=== PATIENT | male | born 1975 | race Caucasian/White ===

== ENCOUNTER 2019-04-30 09:53 | Inpatient (IN) | payer OTHER ==
[2019-04-30 10:15] VITALS: BMI 29.1
--- NOTE | 2019-04-30 10:30 | HP ---
COWS - Scale Resting Pulse: 1= [place] 81-100 Sweatin=Flushed/Facial Moisture Restless Observation: 1= Difficult to Sit Still Pupil Size: 1= Pupils >than Normal Bone or Joint Aches: 2= Severe Diffuse Aches Runny Nose/ Eye Tearin= Runny Nose/Eyes GI Upset > 30mins: 2= Nausea/Diarrhea Tremor Observation: 2= Slight Tremor Visible Yawning Observation: 1= 1-2x During Session Anxiety or Irritability: 1=Feels Anxious/Irritable Goose Flesh Skin: 3=Piloerection COWS Score: 18 CIWA Score - Admission Criteria OASAS Guidelines: Admission for Medically Managed Detox: Requires at least one of the followin. CIWA greater than 12 2. Seizures within the past 24 hours 3. Delirium tremens within the past 24 hours 4. Hallucinations within the past 24 hours 5. Acute intervention needed for co occurring medical disorder 6. Acute intervention needed for co occurring psychiatric disorder 7. Severe withdrawal that cannot be handled at a lower level of care (continued vomiting, continued diarrhea, abnormal vital signs) requiring intravenous medication and/or fluids 8. Admitting History and Physical - Admission Chief Complaint: " I want to stop heroin and cocaine." History of Present Illness: 43 year old male with opioid dependence with withdrawals and cocaine use disorder. He is using 3-4 bundles heroin per day. He denies overdose in the past. He last used yesterday. He is using 5 bundles of cocaine per day. He last used yesterday. He smokes 3-4 ciggs per day, since 15 years old. Never attempted smoking cessation. PMH: HTN, Asthma Psurg: Right shoulder rotator cuff tear - Smoking History Smoking history: Current every day smoker Have you smoked in the past 12 months: Yes Aproximately how many cigarettes per day: 10 - Alcohol/Substance Use Hx Alcohol Use: Yes Admission ROS [facility] - HPI Allergies/Adverse Reactions: Allergies Allergy/AdvReac Type Severity Reaction Status Date / Time No Known Allergies Allergy Verified 09/17/15 16:38 Exam Limitations: No Limitations - Ebola screening Have you traveled outside of the country in the last 21 days: No Have you had contact with anyone from an Ebola affected area: No Have you been sick,other than usual withdrawal symptoms: No Do you have a fever: No - Review of Systems Constitutional: Chills, Diaphoresis, Night Sweats EENT: reports: No Symptoms Reported Respiratory: reports: No Symptoms reported Cardiac: reports: No Symptoms Reported GI: reports: No Symptoms Reported : reports: No Symptoms Reported Musculoskeletal: reports: No Symptoms Reported Integumentary: reports: No Symptoms Reported Neuro: reports: No Symptoms reported Endocrine: reports: No Symptoms Reported Hematology: reports: No Symptoms Reported Psychiatric: reports: Judgement Intact, Mood/Affect Appropiate, Orientated x3 Other Systems: Reviewed and Negative Patient History - Patient Medical History Hx Anemia: No Hx Asthma: Yes Hx Chronic Obstructive Pulmonary Disease (COPD): No Hx Cancer: No Hx Cardiac Disorders: No Hx Congestive Heart Failure: No Hx Hypertension: Yes Hx Hypercholesterolemia: No Hx Pacemaker: No HX Cerebrovascular Accident: No Hx Seizures: No Hx Dementia: No Hx Diabetes: No Hx Gastrointestinal Disorders: No Hx Liver Disease: No Hx Genitourinary Disorders: No Hx Sexually Transmitted Disorders: No Hx Renal Disease (ESRD): No Hx Thyroid Disease: No Hx Human Immunodeficiency Virus (HIV): No Hx Hepatitis C: No Hx Depression: No Hx Suicide Attempt: Yes (2004) Hx Bipolar Disorder: Yes Hx Schizophrenia: Yes - Patient Surgical History Past Surgical History: Yes Hx Neurologic Surgery: No Hx Cataract Extraction: No Hx Cardiac Surgery: No Hx Lung Surgery: No Hx Breast Surgery: No Hx Breast Biopsy: No Hx Abdominal Surgery: No Hx Appendectomy: No Hx Cholecystectomy: No Hx Genitourinary Surgery: No Hx Section: No Hx Orthopedic Surgery: Yes (RT. ROTATOR CUFF) Anesthesia Reaction: No - PPD History Previous Implant?: Yes Documented Results: Negative w/o proof Implanted On Prior [facility] Admission?: Yes Date: 09/19/15 PPD to be Administered?: Yes - Smoking Cessation Smoking history: Current every day smoker Have you smoked in the past 12 months: Yes Aproximately how many cigarettes per day: 10 Hx Chewing Tobacco Use: No Initiated information on smoking cessation: Yes 'Breaking Loose' booklet given: 05/01/19 - Substances abused Heroin Substance route: Injection Frequency: Daily Amount used: $100 Age of first use: 18 Date of last use: 04/29/19 Cocaine Substance route: Smoking Frequency: Daily Amount used: $200 Age of first use: 18 Date of last use: 04/29/19 Admission Physical Exam [facility] - Vital Signs Vital Signs: Vital Signs - 24 hr 04/30/19 10:03 Temperature 97.7 F Pulse Rate 58 L Respiratory 18 Rate Blood Pressure 156/89 - Physical General Appearance: Yes: Mild Distress, Tremorous, Irritable, Sweating, Anxious HEENTM: Yes: EOMI, Hearing grossly Normal, Normal ENT Inspection, Normocephalic , Normal Voice, MARIANO, Pharynx Normal, Tm's normal, Other (right subconjunctival hemmorhage and fracture of nose) Respiratory: Yes: Chest Non-Tender, Lungs Clear, Normal Breath Sounds, No Respiratory Distress, No Accessory Muscle Use Neck: Yes: No masses,lesions,Nodules, Supple, Trachea in good position Breast: Yes: Within Normal Limits Cardiology: Yes: Regular Rhythm, Regular Rate, S1, S2 Abdominal: Yes: Non Tender, Flat, Soft, Increased Bowel Sounds Genitourinary: Yes: Within Normal Limits Back: Yes: Normal Inspection Musculoskeletal: Yes: full range of Motion, Gait Steady, Pelvis Stable Extremities: Yes: Normal Capillary Refill, Normal Inspection, Normal Range of Motion, Non-Tender Neurological: Yes: 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 intact, Fully Oriented, Alert, Motor Strength 5/5, Normal Mood/Affect, Normal Response Integumentary: Yes: Normal Color, Warm Lymphatic: Yes: Within Normal Limits - Diagnostic (1) Opioid dependence with withdrawal Status: Acute (2) Asthma Status: Chronic Qualifiers: Asthma severity: mild Asthma persistence: intermittent Asthma complication type: with status asthmaticus (3) Bipolar disorder Status: Acute (4) Cocaine dependence, uncomplicated Status: Acute (5) GERD (gastroesophageal reflux disease) Status: Chronic Qualifiers: Esophagitis presence: without esophagitis Qualified Code(s): K21.9 - Gastro -esophageal reflux disease without esophagitis (6) HTN (hypertension) Status: Chronic Qualifiers: Hypertension type: essential hypertension Qualified Code(s): I10 - Essential (primary) hypertension (7) Nicotine dependence Status: Acute Qualifiers: Nicotine product type: cigarettes Substance use status: in withdrawal Qualified Code(s): F17.213 - Nicotine dependence, cigarettes, with withdrawal Cleared for Admission [facility] - Detox or Rehab [facility] Level of Care: Medically Managed Detox Regimen/Protocol: Methadone Claeared for Rehab Admission: No Screened but not Admitted - Documentation of Visit Screened but not Admitted: No Inpatient Rehab Admission - Rehab Decision to Admit Inpatient rehab admission?: No
[2019-04-30] MEDS ORDERED: MAGNESIUM CITRATE 300 ML BOTTLE PO PRN (10:36)
[2019-04-30] MEDS ORDERED: cloNIDine HCL 0.1 MG TABLET PO PRN (10:36)
[2019-04-30] MEDS ORDERED: hydrOXYzine PAMOATE 25 MG CAPSULE (FP) PO PRN (10:36)
[2019-04-30] MEDS ORDERED: BISMUTH SUBSALICYLATE 262 MG/15 ML BTL PO PRN (10:36)
[2019-04-30] MEDS ORDERED: MELATONIN 5 MG TABLETS PO PRN (10:36)
[2019-04-30] MEDS ORDERED: IBUPROFEN 400 MG TABLET (FP) PO PRN (10:36)
[2019-04-30] MEDS ORDERED: ACETAMINOPHEN 325 MG TABLET (FP) PO PRN ×2 (10:36)
[2019-04-30] MEDS ORDERED: MENTHOL/PHENOL 1 EACH UD MM PRN (10:36)
[2019-04-30] MEDS ORDERED: MAGNESIUM HYDROX 2400MG/30ML ORAL SUSPENSION 30 ML CUP PO PRN (10:36)
[2019-04-30] MEDS ORDERED: MAG HYDROX/AL HYDROX/SIMETH 30 ML UNIT-DOSE CUP PO PRN (10:36)
[2019-04-30] MEDS ORDERED: METHOCARBAMOL 500 MG TABLET PO PRN (10:36)
[2019-04-30] MEDS ORDERED: METHADONE HCL 10 MG TABLET (FOR DETOX USE ONLY) PO ONE (11:40)
[2019-04-30] MEDS: PANTOPRAZOLE 20 MG TABLET (FP) PO SCH (11:58)
--- NOTE | 2019-04-30 12:48 | CONSULT ---
[facility] Psychiatric Consult - Data Date of interview: 04/30/19 Admission source: [facility] Identifying data: Patient is approached for psychiatric interview. Found lying in bed, awake. Mr Al refuses to talk to conventional underwriter. " I am tired. I need to rest. I am not talking." Nursing staff is made aware.
[2019-04-30 14:30] LABS: HEMATOCRIT 44.9 % (35.4-49); HEMOGLOBIN 14.7 GM/dL (11.7-16.9); MCH 28.7 pg (25.7-33.7); MCHC 32.7 g/dl (32.0-35.9); MEAN CELL VOLUME 87.9 fl (80-96); MEAN PLT VOLUME 7.5 fl (7.5-11.1); PLATELET COUNT 348 K/MM3 (134-434); RBC 5.11 M/mm3 (4.00-5.60); RDW 14.4 % (11.9-15.9); WHITE BLOOD COUNT 8.3 K/mm3 (4.0-10.0)
[2019-04-30 14:44] LABS: ALBUMIN 3.5 g/dl (3.4-5.0); BILIRUBIN,TOTAL 0.6 mg/dL (0.2-1); BLOOD UREA NITROGEN 12.3 mg/dL (7-18); CALCIUM 9.1 mg/dL (8.5-10.1); CREATININE 0.7 mg/dL (0.55-1.3); POTASSIUM 3.8 mmol/L (3.5-5.1); TOT PROT 7.6 g/dl (6.4-8.2)
[2019-04-30] MEDS ORDERED: THIAMINE HCL 100 MG TABLET (FP) PO SCH (22:00)
[2019-05-01] MEDS ORDERED: METHADONE HCL 10 MG TABLET (FOR DETOX USE ONLY) ONE (08:15)
[2019-05-01] MEDS ORDERED: METHADONE HCL 5 MG TABLET (FOR DETOX USE ONLY) ONE (08:15)
[2019-05-01] MEDS: PANTOPRAZOLE 20 MG TABLET (FP) PO SCH (09:06)
[2019-05-01] MEDS ORDERED: METHADONE (DETOX) 20 MG, METHADONE (DETOX) 5 MG PO ONE (10:00)
[2019-05-01] MEDS ORDERED: PRENATAL VITAMINS W/ FOLIC ACID TABLET (FP) PO SCH (10:00)
[2019-05-01] MEDS ORDERED: NICOTINE 14 MG/24 HOURS TOPICAL PATCH TD SCH (10:00)
--- NOTE | 2019-05-01 10:31 | PN ---
S COWS - Scale Resting Pulse: 0= [place] 80 or Below Sweatin=Flushed/Facial Moisture Runny Nose/ Eye Tearin= Runny Nose/Eyes Tremor Observation of Outstretched Hands: 2= Slight Tremor Visible Anxiety or Irritability: 2=Irritable/Anxious S Progress Note (SOAP) Subjective: 43 years old male admitted on 04/30/19 for opiate withdrawal sx management treating with methadone detox regimen patient is uncooperative during cows measurement patient refuses bp monitoring patient refuses to be seen by a psychiatrist although the patient states out loud that he has mental illness not taking any medication patient is irritable patient is aggressive at time toward staff patient contracted for safety in the detox unit to staff and to peers Objective: 05/01/19 11:09 Vital Signs Temperature 97.4 F L 05/01/19 09:08 Pulse Rate 60 05/01/19 09:08 Respiratory Rate 18 05/01/19 09:08 Blood Pressure 149/90 05/01/19 09:08 O2 Sat by Pulse Oximetry (%) Laboratory Last Values WBC 8.3 K/mm3 (4.0-10.0) 04/30/19 10:40 RBC 5.11 M/mm3 (4.00-5.60) 04/30/19 10:40 Hgb 14.7 GM/dL (11.7-16.9) 04/30/19 10:40 Hct 44.9 % (35.4-49) 04/30/19 10:40 MCV 87.9 fl (80-96) 04/30/19 10:40 MCH 28.7 pg (25.7-33.7) 04/30/19 10:40 MCHC 32.7 g/dl (32.0-35.9) 04/30/19 10:40 RDW 14.4 % (11.9-15.9) 04/30/19 10:40 Plt Count 348 K/MM3 (134-434) 04/30/19 10:40 MPV 7.5 fl (7.5-11.1) 04/30/19 10:40 Sodium 137 mmol/L (136-145) 04/30/19 10:40 Potassium 3.8 mmol/L (3.5-5.1) 04/30/19 10:40 Chloride 103 mmol/L (98-107) 04/30/19 10:40 Carbon Dioxide 26 mmol/L (21-32) 04/30/19 10:40 Anion Gap 8 MMOL/L (8-16) 04/30/19 10:40 BUN 12.3 mg/dL (7-18) 04/30/19 10:40 Creatinine 0.7 mg/dL (0.55-1.3) 04/30/19 10:40 Est GFR (CKD-EPI)AfAm 135.86 04/30/19 10:40 Est GFR (CKD-EPI)NonAf 117.22 04/30/19 10:40 Random Glucose 96 mg/dL (74-106) 04/30/19 10:40 Calcium 9.1 mg/dL (8.5-10.1) 04/30/19 10:40 Total Bilirubin 0.6 mg/dL (0.2-1) 04/30/19 10:40 AST 42 U/L (15-37) H 04/30/19 10:40 ALT 56 U/L (13-61) 04/30/19 10:40 Alkaline Phosphatase 76 U/L (45-117) 04/30/19 10:40 Total Protein 7.6 g/dl (6.4-8.2) 04/30/19 10:40 Albumin 3.5 g/dl (3.4-5.0) 04/30/19 10:40 RPR Titer Nonreactive (NONREACTIVE) 04/30/19 10:40 HIV 1&2 Antibody Screen Negative 04/30/19 10:52 HIV P24 Antigen Negative 04/30/19 10:52 lab noted bp elevation admlodipine 5 mg po daily Assessment: 05/01/19 11:10 opiate withdrawal Plan: methadone regimen
[2019-05-01] MEDS ORDERED: FLU VACCINE QUAD 60 MCG/0.5 ML (MDV 19-20) IM ONE (12:00)
[2019-05-01 13:04] VITALS: BP 146/94; PULSE 55; TEMP 98.1
--- NOTE | 2019-05-01 13:07 | PN ---
[facility] Progress Note Note: Psychiatry Attending's note (delayed) : Case re-endorsed, by nurse Yoselyn Vaughn, for psychiatric evaluation. Patient is, again, approached at bedside for psychiatric interview. Mr Al responds that he " does not need to talk to psychiatrists." He is found lying in bed, fully awake and resting. No evidence of distress. " I need my sleep. I don't have to see psychiatrists. I am fine. Just tired." Nursing staff is made aware of patient's decision to decline psychiatric interview.
--- NOTE | 2019-05-01 14:39 | DS ---
[facility] Detox Discharge Summary Admission Date: 04/30/19 Discharge Date: 05/01/19 - History Present History: Opioid Dependence Additional Comments: 43 years old male admitted on 04/30/19 for opiate withdrawal sx management treated with methadone detox regimen patient is alert awake ambulating steady gait speech clearly and coherently that people disturb his resting "keep waking me up" anger out burst aggressive toward staff threatening staff verbally violent toward staff rich in sexual content multidisciplinary approach that involuntary discharge is appropriated medical grade shoemaker informed and agreed involuntary discharge patient had no visible injury good eye contact - Physical Exam Results Vital Signs: Vital Signs Temperature 98.1 F 05/01/19 13:03 Pulse Rate 55 L 05/01/19 13:03 Respiratory Rate 18 05/01/19 13:03 Blood Pressure 146/94 05/01/19 13:03 O2 Sat by Pulse Oximetry (%) Pertinent Admission Physical Exam Findings: opiate withdrawal CBC, BMP 04/30/19 10:40 04/30/19 10:40 - Treatment Hospital Course: Detox Protocol Followed, Responded well, Discharged Condition Good Patient has Accepted a Rehab Referral to: community support approach - Medication Discharge Medications: Ambulatory Orders Naloxone HCl [Narcan] 4 mg NS ASDIR PRN #1 spray 05/01/19 - Diagnosis (1) Asthma Current Visit: Yes Status: Chronic Qualifiers: Asthma severity: mild Asthma persistence: intermittent Asthma complication type: with status asthmaticus Qualified Code(s): J45.22 - Mild intermittent asthma with status asthmaticus (2) GERD (gastroesophageal reflux disease) Current Visit: Yes Status: Chronic Qualifiers: Esophagitis presence: without esophagitis Qualified Code(s): K21.9 - Gastro -esophageal reflux disease without esophagitis (3) HTN (hypertension) Current Visit: Yes Status: Chronic Qualifiers: Hypertension type: essential hypertension Qualified Code(s): I10 - Essential (primary) hypertension (4) Nicotine dependence Current Visit: Yes Status: Acute Qualifiers: Nicotine product type: cigarettes Substance use status: in withdrawal Qualified Code(s): F17.213 - Nicotine dependence, cigarettes, with withdrawal (5) Opioid dependence with withdrawal Current Visit: Yes Status: Acute - AMA Did Patient Leave Against Medical Advice: No COWS (PN) - Opiate Withdrawal Resting Pulse: 0= [place] 80 or Below Yawning Observation: 0= None Anxiety or Irritability: 2=Irritable/Anxious
[2019-05-01] MEDS ORDERED: amLODIPine BESYLATE 5 MG TABLET (FP) PO SCH (22:00)
[2019-05-02] MEDS ORDERED: METHADONE HCL 10 MG TABLET (FOR DETOX USE ONLY) PO ONE (10:00)
[2019-05-03] MEDS ORDERED: METHADONE (DETOX) 10 MG, METHADONE (DETOX) 5 MG PO ONE (10:00)
[2019-05-04] MEDS ORDERED: METHADONE HCL 10 MG TABLET (FOR DETOX USE ONLY) PO ONE (10:00)
[2019-05-05] MEDS ORDERED: METHADONE HCL 5 MG TABLET (FOR DETOX USE ONLY) PO ONE (06:00)
== END 2019-05-01 12:50 | disposition home or self-care (01) | DRG 897 ==
LOC: YASAS 09:53 → Y3N 10:51
PROVIDERS: ADMIT Allergy & Immunology; ATTEND Allergy & Immunology
PROC: HZ2ZZZZ Detoxification Services for Substance Abuse Treatment (ICD-10-PCS; principal; 2019-04-30)
DX: F11.23 Opioid dependence with withdrawal (principal); J45.22 Mild intermittent asthma with status asthmaticus; F12.20 Cannabis dependence, uncomplicated; F17.213 Nicotine dependence, cigarettes, with withdrawal; F31.9 Bipolar disorder, unspecified; I10 Essential (primary) hypertension; K21.9 Gastro-esophageal reflux disease without esophagitis; Z91.5 Personal history of self-harm
CPT/HCPCS: 36415; 80053; 85027; 86593; 87389; J0735